=== PATIENT | male | born 1985 | race Caucasian/White ===

== ENCOUNTER 2017-01-06 21:40 | Emergency (ER) | payer SELFPAY ==
[2017-01-06] MEDS ORDERED: TRIAMCINOLONE ACETONIDE 40 MG/ML VIAL MISC ONE (21:59)
[2017-01-06 22:00] VITALS: TEMP 99
--- NOTE | 2017-01-06 22:02 | EDPHY ---
H & P Stated Complaint: ATRAUMATIC L KNEE PAIN Time Seen by Provider: 01/06/17 21:56 HPI/ROS: CHIEF COMPLAINT: Left knee pain HISTORY OF PRESENT ILLNESS: Patient is a 31-year-old man comes to the emergency department complaining of left knee pain. He complains of pain at the patella tendon. He is able to ambulate but has significant pain. He denies trauma. He states that he 1st noticed it when he woke up from sleep and is leg was hanging off the bed a couple of days ago. He is able to extend his leg. He has no swelling or erythema. No warmth. No fevers. No paresthesias or numbness or weakness. REVIEW OF SYSTEMS: Constitutional: denies: chills, fever, recent illness, recent injury EENTM: denies: blurred vision, double vision, nose congestion Respiratory: denies: cough, shortness of breath Cardiac: denies: chest pain, irregular heart rate, lightheadedness, palpitations Gastrointestinal/Abdominal: denies: abdominal pain, diarrhea, nausea, vomiting, blood streaked stools Genitourinary: denies: dysuria, frequency, hematuria, pain Musculoskeletal: See HPI Skin: denies: lesions, rash, jaundice, bruising Neurological: denies: headache, numbness, paresthesia, tingling, dizziness, weakness Hematologic/Lymphatic: denies: blood clots, easy bleeding, easy bruising Immunologic/allergic: denies: HIV/AIDS, transplant EXAM: GENERAL: Well-appearing, well-nourished and in no acute distress. HEAD: Atraumatic, normocephalic. EYES: Pupils equal round and reactive to light, extraocular movements intact, sclera anicteric, conjunctiva are normal. ENT: TMs normal, nares patent, oropharynx clear without exudates. Moist mucous membranes. NECK: Normal range of motion, supple without lymphadenopathy or JVD. LUNGS: Breath sounds clear to auscultation bilaterally and equal. No wheezes rales or rhonchi. HEART: Regular rate and rhythm without murmurs, rubs or gallops. ABDOMEN: Soft, nontender, normoactive bowel sounds. No guarding, no rebound. No masses appreciated. BACK: No CVA tenderness, no spinal tenderness, step-offs or deformities EXTREMITIES: Tenderness to the left patellar tendon. No erythema or swelling. Able to straight leg. Normal pulses and sensation distally. No other knee tenderness or deformity. NEUROLOGICAL: Cranial nerves II through XII grossly intact. Normal speech, normal gait. 5/5 strength, normal movement in all extremities, normal sensation PSYCH: Normal mood, normal affect. SKIN: Warm, dry, normal turgor, no visible rashes or lesions. Source: Patient Exam Limitations: No limitations - Personal History Current Tetanus/Diphtheria Vaccine: Yes - Medical/Surgical History Hx Asthma: No Hx Chronic Respiratory Disease: No Hx Diabetes: No Hx Cardiac Disease: No Hx Renal Disease: No Hx Cirrhosis: No Hx Alcoholism: No Hx HIV/AIDS: No Hx Splenectomy or Spleen Trauma: No Other PMH: DENIES PMH/PSH - Family History Significant Family History: No pertinent family hx - Social History Smoking Status: Current every day smoker Alcohol Use: Sober Drug Use: None Constitutional: Initial Vital Signs Temperature (C) 37.2 C 01/06/17 21:50 Heart Rate 106 H 01/06/17 21:50 Respiratory Rate 18 01/06/17 21:50 Blood Pressure 172/116 H 01/06/17 21:50 O2 Sat (%) 97 01/06/17 21:50 O2 Delivery Mode Room Air Allergies/Adverse Reactions: No Known Allergies Allergy (Unverified 01/06/17 21:55) Home Medications: Medication Instructions Recorded NK [No Known Home Meds] 01/06/17 Medical Decision Making - Diagnostics Imaging Results: X-ray: Knee x-ray was obtained. I viewed the images myself on the PACS system. My interpretation of the images is: negative for acute disease . The radiologist interpretation is pending. Procedures: Procedure: Splint placement. A Velcro straight leg splint was applied. After application of the splint I returned and re-examined the patient. The splint was adequately immobilizing the joint and distal to the splint the patient's circulation and sensation was intact. Injection: The patient was sterilized with alcohol and I injected 40 mg Kenalog into his patellar tending into the soft tissue surrounding. He tolerated the procedure well. ED Course/Re-evaluation: The patient's x-rays reassuring. His exam is benign. I suspect he has a patellar tendinitis. I did inject him with 40 mg of Kenalog and will place him in a straight leg brace and have encouraged anti-inflammatories and follow up with Orthopedics. He understands and agrees with this plan. We discussed indications for returning. No sign of infection at this time. - Data Points Medications Given: Discontinued Medications Ibuprofen (Motrin) 800 mg PO EDNOW ONE Stop: 01/06/17 22:26 Last Admin: 01/06/17 22:43 Dose: 800 mg Triamcinolone Acetonide (Kenalog-40) 40 mg MISC EDNOW ONE Stop: 01/06/17 22:00 Last Admin: 01/06/17 22:20 Dose: 40 mg Departure - Departure Disposition: Home, Routine, Self-Care Clinical Impression: Patellar tendinitis of left knee Condition: Fair Instructions: Patellar Tendinitis (ED) Additional Instructions: Take ibuprofen 600 mg every 6 hours and where the leg brace as needed. Follow up with Orthopedics as discussed. Referrals: Blue Alarcon MD [Medical Doctor] - As per Instructions
[2017-01-06] MEDS ORDERED: IBUPROFEN 200 MG TAB PO ONE (22:25)
[2017-01-06 22:52] VITALS: BP 167/90; PULSE 79; RESP 16; O2SAT 96
== END 2017-01-06 22:52 | disposition home or self-care (01) ==
LOC: CED 21:40
DX: M76.52 Patellar tendinitis, left knee (principal); F17.200 Nicotine dependence, unspecified, uncomplicated
CPT/HCPCS: 73564-PO; J3301; L1830